=== PATIENT | male | born 1970 | race Caucasian/White ===

== ENCOUNTER 2018-03-01 02:33 | Emergency (ER) | payer OTHER ==
[~2018-03-01] VITALS: Ht 180.3 cm; Wt 90.2 kg
[~2018-03-01 02:33] MED LIST: NOVOLOGMXP
[2018-03-01 02:37] VITALS: RESP 16
[2018-03-01 02:41] VITALS: BP 155/70; PULSE 93; RESP 18; TEMP 97.9; O2SAT 98
[2018-03-01] MEDS ORDERED: SODIUM CHLORIDE 0.9% FLUSH 10 ML FLUSH IVF PRN (02:45)
--- NOTE | 2018-03-01 02:47 | PD ---
HPI Chief Complaint: Diabetic Time Seen by Provider: 02:36 Travel History International Travel<30 days: No Contact w/Intl Traveler<30days: No Traveled to known affect area: No History of Present Illness HPI Patient was at the [employer] festival concert today. Stated that he only had a hot dog at the concert but has a NovoLog pump. Patient decided to check his blood sugar once he got home because he started to feel little nauseous, and found that his blood sugar was reading in the 40s, despite drinking Gatorade, Coke, and other finger foods. Patient's Accu-Chek upon arrival here in the department was 84..... Patient explicitly denies any headache, photophobia, neck pain, rash, fever, chest pain, abdominal pain, flank pain, sore throat/ runny nose/cough. Patient denied that he used any drugs or anything he did admit to drinking a few alcoholic beverages but not enough to have gotten himself sick. [facility] No known drug allergy Past medical history significant for diabetes [facility] Past Medical History Diabetes: Yes Dialysis: Yes ?: Not Social History Alcohol Use: No Tobacco Use: No Substance Use: No Allergies-Medications (Allergen,Severity, Reaction): Coded Allergies: No Known Allergies (Verified Allergy, Mild, 03/01/18) Reported Meds & Prescriptions Reported Meds & Active Scripts Active Zofran Odt (Ondansetron Odt) 4 Mg Tab 4 Mg SL Q6HR PRN Reported Novolog Mix 70/30 (Insulin Aspart Prota 70%/Aspart 30%) 100 Units/Ml Inj Review of Systems General / Constitutional: No: Fever Eyes: No: Visual changes HENT: No: Headaches Cardiovascular: No: Chest Pain or Discomfort Respiratory: No: Shortness of Breath Gastrointestinal: Positive: Nausea Genitourinary: No: Dysuria Musculoskeletal: No: Pain Skin: No Rash Neurologic: No: Weakness Psychiatric: No: Depression Endocrine: No: Polydipsia Hematologic/Lymphatic: No: Easy Bruising Physical Exam Narrative GENERAL: SKIN: Warm and dry. HEAD: Atraumatic. Normocephalic. EYES: Pupils equal and round. No scleral icterus. No injection or drainage. ENT: No nasal bleeding or discharge. Mucous membranes pink and moist. NECK: Trachea midline. No JVD. CARDIOVASCULAR: Regular rate and rhythm. RESPIRATORY: No accessory muscle use. Clear to auscultation. Breath sounds equal bilaterally. GASTROINTESTINAL: Abdomen soft, non-tender, nondistended. Patient has a continuous insulin pump MUSCULOSKELETAL: Extremities without clubbing, cyanosis, or edema. No obvious deformities. NEUROLOGICAL: Awake and alert. No obvious cranial nerve deficits. Motor grossly within normal limits. Five out of 5 muscle strength in the arms and legs. Normal speech. PSYCHIATRIC: Appropriate mood and affect; insight and judgment normal. Data Data Last Documented VS Orders Orders Electrocardiogram (03/01/18 02:41) B-Type Natriuretic Peptide (03/01/18 02:41) Ckmb (Isoenzyme) Profile (03/01/18 02:41) Complete Blood Count With Diff (03/01/18 02:41) Comprehensive Metabolic Panel (03/01/18 02:41) Prothrombin Time / Inr (Pt) (03/01/18 02:41) Act Partial Throm Time (Ptt) (03/01/18 02:41) Troponin I (03/01/18 02:41) Lipase (03/01/18 02:41) Chest, Single Ap (03/01/18 02:41) Ecg Monitoring (03/01/18 02:41) Bilateral Bp Monitoring (03/01/18 02:41) Iv Access Insert/Monitor (03/01/18 02:41) Oximetry (03/01/18 02:41) Sodium Chloride 0.9% Flush (Ns Flush) (03/01/18 02:45) Ondansetron Odt (Zofran Odt) (03/01/18 03:30) Prochlorperazine Inj (Compazine Inj) (03/01/18 03:45) Diphenhydramine Inj (Benadryl Inj) (03/01/18 03:45) CKMB (03/01/18 03:00) CKMB% (03/01/18 03:00) Alcohol (Ethanol) (03/01/18 03:00) Ct Abd/Pel W/O Iv Contrast (03/01/18 ) Metoclopramide Inj (Reglan Inj) (03/01/18 04:45) Ed Discharge Order (03/01/18 05:47) Labs Laboratory Tests Test 03/01/18 03:00 White Blood Count 15.0 TH/MM3 Red Blood Count 4.69 MIL/MM3 Hemoglobin 13.6 GM/DL Hematocrit 40.9 % Mean Corpuscular Volume 87.3 FL Mean Corpuscular Hemoglobin 29.1 PG Mean Corpuscular Hemoglobin Concent 33.3 % Red Cell Distribution Width 13.3 % Platelet Count 318 TH/MM3 Mean Platelet Volume 7.4 FL Neutrophils (%) (Auto) 83.0 % Lymphocytes (%) (Auto) 10.1 % Monocytes (%) (Auto) 6.0 % Eosinophils (%) (Auto) 0.4 % Basophils (%) (Auto) 0.5 % Neutrophils # (Auto) 12.4 TH/MM3 Lymphocytes # (Auto) 1.5 TH/MM3 Monocytes # (Auto) 0.9 TH/MM3 Eosinophils # (Auto) 0.1 TH/MM3 Basophils # (Auto) 0.1 TH/MM3 CBC Comment DIFF FINAL Differential Comment Prothrombin Time 9.9 SEC Prothromb Time International Ratio 1.0 RATIO Activated Partial Thromboplast Time 22.8 SEC Blood Urea Nitrogen 12 MG/DL Creatinine 0.90 MG/DL Random Glucose 80 MG/DL Total Protein 7.5 GM/DL Albumin 3.9 GM/DL Calcium Level 8.3 MG/DL Alkaline Phosphatase 96 U/L Aspartate Amino Transf (AST/SGOT) 26 U/L Alanine Aminotransferase (ALT/SGPT) 35 U/L Total Bilirubin 0.3 MG/DL Sodium Level 141 MEQ/L Potassium Level 3.3 MEQ/L Chloride Level 106 MEQ/L Carbon Dioxide Level 25.7 MEQ/L Anion Gap 9 MEQ/L Estimat Glomerular Filtration Rate 90 ML/MIN Total Creatine Kinase 215 U/L Creatine Kinase MB 2.2 NG/ML Troponin I LESS THAN 0.02 NG/ML B-Type Natriuretic Peptide 7 PG/ML Lipase 42 U/L Ethyl Alcohol Level 61 MG/DL [facility] Medical Decision Making Medical Screen Exam Complete: Yes Emergency Medical Condition: Yes Medical Record Reviewed: Yes Interpretation(s) EKG shows normal sinus rhythm, 95 bpm, normal intervals, nonspecific ST-T wave changes but without any evidence of any ST elevation MD pattern. Differential Diagnosis Hypoglycemia versus non-STEMI versus STEMI versus pneumonia versus UTI versus pancreatitis versus electrolyte abnormalities Narrative Course Patient is noted to have reactive leukocytosis of 15,000, no anemia, normal platelet count, Coagulation profile is within normal limits Electrolytes are all within normal limits Normal liver kidney and pancreatic functions Normal random glucose of 80 Chest x-ray read by radiologist as no acute cardiopulmonary disease CT abdomen and pelvis read by radiologist as scattered diverticuli in the colon with moderate amount of stool but without diverticulitis. After hours of observation and reevaluation, no major known cause of his nausea was found, patient was not in DKA, was not AKA, was not having any episodes of liver or pancreatic issues, no evidence of dehydration, and the CT findings of scattered diverticuli without diverticulitis would not of been responsible for the patient experiencing nausea episodes. Therefore the most likely cause of the patient's nausea is likely to have been related to alcohol which he did consume while at the festival. Diagnosis Primary Impression: Nausea nonspecific Patient Instructions: Acute Nausea and Vomiting (ED), General Instructions Scripts Ondansetron Odt (Zofran Odt) 4 Mg Tab 4 MG SL Q6HR Y for Nausea/Vomiting, #20 TAB 0 Refills Prov: Keshav Fink MD 03/01/18 Disposition: 01 DISCHARGE HOME Condition: Stable Keshav Fink MD March 01, 2018 02:47
[2018-03-01 02:50] VITALS: BP_SYST 131; BP_SYST 155; BP_DIAS 70; BP_DIAS 80; PULSE 89; RESP 16; O2SAT 99
--- NOTE | 2018-03-01 03:05 | RADRPT ---
EXAM DATE: 03/01/2018 3:00 AM EDT AGE/SEX: 47 years / Male INDICATIONS: Nausea, vomiting, weakness, short of breath, evaluate for infiltrate CLINICAL DATA: This is the patient's initial encounter. Patient reports that signs and symptoms have been present for 1 day and indicates a pain score of 0/10. MEDICAL/SURGICAL HISTORY: Diabetes mellitus type II. . insulin pump COMPARISON: No prior exams available for comparison. FINDINGS: The lungs are clear without infiltrate, nodule, or mass. There is no appreciable pleural effusion for technique. Heart and mediastinum are unremarkable. CONCLUSION: No acute cardiopulmonary disease. Electronically signed by: Ayush Paulino MD 03/01/2018 3:03 AM EDT
[2018-03-01 03:16] LABS: AUTOMATED NEUTROPHIL # 12.4 TH/MM3 (1.8-7.7); BASOPHIL # 0.1 TH/MM3 (0-0.2); BASOPHIL % 0.5 % (0.0-2.0); EOSINOPHIL # 0.1 TH/MM3 (0-0.4); EOSINOPHIL % 0.4 % (0.0-4.0); HEMATOCRIT 40.9 % (39.0-51.0); HEMOGLOBIN 13.6 GM/DL (13.0-17.0); LYMPH % 10.1 % (9.0-44.0); LYMPHOCYTE # 1.5 TH/MM3 (1.0-4.8); MEAN CELL VOLUME 87.3 FL (80.0-100.0); MEAN CORPUSCULAR HEMOGLOBIN 29.1 PG (27.0-34.0); MEAN CORPUSCULAR HGB CONC 33.3 % (32.0-36.0); MEAN PLATELET VOLUME 7.4 FL (7.0-11.0); MONOCYTE # 0.9 TH/MM3 (0-0.9); PLATELET COUNT 318 TH/MM3 (150-450); RED BLOOD COUNT 4.69 MIL/MM3 (4.50-5.90); RED CELL DISTRIBUTION WIDTH 13.3 % (11.6-17.2)
[2018-03-01 03:25] LABS: CHLORIDE 106 MEQ/L (98-107); SODIUM (NA) 141 MEQ/L (136-145)
[2018-03-01 03:28] LABS: CALCIUM 8.3 MG/DL (8.5-10.1); PROTHROMBIN TIME - PATIENT 9.9 SEC (9.8-11.6)
[2018-03-01 03:29] LABS: ALBUMIN 3.9 GM/DL (3.4-5.0); BICARBONATE 25.7 MEQ/L (21.0-32.0); BLOOD UREA NITROGEN 12 MG/DL (7-18); GLUCOSE,RANDOM 80 MG/DL (74-106)
[2018-03-01] MEDS ORDERED: ONDANSETRON ODT 4 MG TAB PO ONE (03:30)
[2018-03-01 03:31] LABS: ALT (GPT) 35 U/L (12-78); AST (GOT) 26 U/L (15-37)
[2018-03-01 03:32] LABS: GLOMERULAR FILTRATION RATE 90 ML/MIN (>89)
[2018-03-01 03:33] LABS: TOTAL BILIRUBIN ADULT 0.3 MG/DL (0.2-1.0); TOTAL PROTEIN 7.5 GM/DL (6.4-8.2)
[2018-03-01 03:34] LABS: ALKALINE PHOSPHATASE 96 U/L (45-117)
[2018-03-01 03:36] LABS: TROPONIN I LESS THAN 0.02 NG/ML (0.02-0.05)
[2018-03-01] MEDS ORDERED: PROCHLORPERAZINE INJ 10 MG/2 ML VIAL IV PUSH ONE (03:45)
[2018-03-01] MEDS ORDERED: diphenhydrAMINE HCL 50 MG/ML VIAL IV PUSH ONE (03:45)
[2018-03-01 04:05] VITALS: BP 148/74
[2018-03-01] MEDS ORDERED: METOCLOPRAMIDE HCL 10 MG/2 ML VIAL IV PUSH ONE (04:45)
[2018-03-01 05:32] VITALS: BP 142/76; PULSE 89; RESP 16; O2SAT 99
--- NOTE | 2018-03-01 05:41 | RADRPT ---
EXAM DATE: 03/01/2018 5:34 AM EDT AGE/SEX: 47 years / Male INDICATIONS: Vomiting. Evaluate for small bowel obstruction. CLINICAL DATA: This is the patient's initial encounter. Patient reports that signs and symptoms have been present for 1 day and indicates a pain score of 1/10. MEDICAL/SURGICAL HISTORY: Diabetes. None. RADIATION DOSE: 12.02 CTDI (mGy) COMPARISON: No prior exams available for comparison. TECHNIQUE: Multiple contiguous axial images were obtained through the abdomen. Images were obtained using multiple row detector helical technique. Using dose reduction techniques, radiation dose was ke pt as low as reasonably achievable to obtain optimal diagnostic quality images. FINDINGS: Abdomen CT: The liver, spleen, pancreas, kidneys, adrenals are unremarkable. There is no evidence for any appreci able pathological adenopathy, free fluid, or bowel obstruction. Pelvic CT: There is no evidence for mass, abscess formation, or any significant adenopathy within the pelvis. T here is moderate amount of stool in the colon. There are scattered diverticuli within the colon main ly the sigmoid colon without signs of diverticulitis for technique. CONCLUSION: Essentially unremarkable study except for scattered diverticuli in the patient's colon a nd moderate amount of stool. Electronically signed by: Ayush Paulino MD 03/01/2018 5:40 AM EDT
[2018-03-01] MEDS ORDERED: ZOFR4TAB3 SL (05:45)
[2018-03-01 06:11] VITALS: BP 135/68
--- NOTE | 2018-03-01 07:53 | EKG ---
Date Performed: 03/01/2018 Time Performed: 04:54:39 PTAGE: 47 years EKG: Sinus rhythm NONSPECIFIC T-WAVE ABNORMALITY BORDERLINE ECG NO PREVIOUS TRACING DOCTOR: Finesse Springer Interpretating Date/Time 03/01/2018 07:50:54
== END 2018-03-01 06:16 | disposition home or self-care (01) ==
LOC: PHED 02:33
DX: R11.0 Nausea (principal); E11.9 Type 2 diabetes mellitus without complications; R94.31 Abnormal electrocardiogram [ECG] [EKG]; D72.829 Elevated white blood cell count, unspecified; Z99.2 Dependence on renal dialysis
CPT/HCPCS: 71045; 74176; 80053; 80307; 82550; 82552; 83690; 83880; 84484; 85025; 85610; 85730; 93005; 96374; 96375; 99285; J0780; J1200; J2765